=== PATIENT | female | born 1945 | race Caucasian/White ===

== ENCOUNTER 2022-09-03 17:51 | Inpatient (IN) | payer MEDICARE, SELFPAY ==
[2022-09-03] VITALS (8 sets, daily range): BP systolic 112–144; BP diastolic 54–84; PULSE 86–114; RESP 18–22; TEMP 36.7; O2SAT 91–94; BMI 25.0
--- NOTE | 2022-09-03 17:52 | XRR_ITS ---
PROCEDURE INFORMATION: Exam: XR Chest Exam date and time: 09/03/2022 6:26 PM Age: 77 years old Clinical indication: Shortness of breath; Prior surgery; Surgery date: 6+ months; Surgery type: Port; Patient HX: Breast CA; Additional info: SOB TECHNIQUE: Imaging protocol: Radiologic exam of the chest. Views: 1 view. COMPARISON: No relevant prior studies available. FINDINGS: Tubes, catheters and devices: Left-sided Port-A-Cath. Lungs: Left lower lobe atelectasis. Pleural spaces: Unremarkable. No pleural effusion. No pneumothorax. Heart/Mediastinum: Unremarkable. No cardiomegaly. Bones/joints: Unremarkable. XR/XR chest 1V portable [id number] IMPRESSION: Left lower lobe atelectasis.
--- NOTE | 2022-09-03 17:52 | ECG_ITS ---
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 Measurements Intervals [place] Rate: 112 P: 46 ME: 135 QRS: -40 QRSD: 94 T: 46 QT: 319 QTc: 436 Interpretive Statements SINUS TACHYCARDIA POSSIBLE LEFT ATRIAL ENLARGEMENT [-0.1mV P-WAVE IN V1/V2] LEFT AXIS DEVIATION [QRS AXIS < -30] POSSIBLE LEFT VENTRICULAR HYPERTROPHY [VOLTAGE CRITERIA PLUS LAE OR QRS WIDENING] POSSIBLE ANTERIOR MYOCARDIAL INFARCTION , PROBABLY OLD [30 ms Q WAVE IN V3/V4, OR R < 0.2 mV IN V4] No previous ECG available for comparison Electronically Signed On 09-04-2022 16:39:55 HOME THERAPY CLINICIAN by Raudel Smith M.D. [id number]
--- NOTE | 2022-09-03 18:45 | W.ED.SOB ---
HPI - SOB/Dyspnea General: Chief Complaint: Shortness of Breath/Dyspnea Stated Complaint: SOB,weak,fatigue Time Seen by Provider: 09/03/22 18:28 Source: patient and family Mode of arrival: ambulatory Limitations: no limitations History of Present Illness: HPI Narrative: See nursing assessment. Patient with complaints of increased shortness of breath over the last 3 days. She states she has had shortness of breath since she was diagnosed with COVID in June. She states over the past 24 hours she felt more fatigued, increased generalized weakness, off balance, fall last night but was unable to get up due to generalized weakness. Patient is also had intermittent diarrhea over the past couple days. Patient went to urgent care yesterday and was placed on prednisone and promethazine syrup for cough. Patient did not know she had a fever today. Patient had history of COVID in June and took back Paxlovid at that time. Patient reports chronic shortness of breath and cough since then. Patient reports cough that is nonproductive still. Patient states she was diagnosed and February of this year with ductal breast cancer and underwent chemotherapy up until June. She is not any radiation. She states she had a lumpectomy in July on August 20, 2022 in [place] where she gets her medical care. She states when she did have COVID she was not diagnosed with COVID-pneumonia. She states the diarrhea is common after chemotherapy. However, she has not had chemotherapy since June. Associated symptoms: Deny abdominal pain, chest pain, fever(s), hemoptysis, nausea, palpitations or vomiting Review of Systems Const: Denies: fever(s) or chills Eyes: Denies: change in vision ENMT: Denies: throat pain Card: Denies: chest pain or palpitations Resp: Reports: dyspnea and non-productive cough; Denies: wheezing or hemoptysis GI: Reports: diarrhea; Denies: abdominal pain, nausea, vomiting or hematochezia : Denies: flank pain Musc: Denies: neck pain Skin/Breast: Denies: rash or pruritus Neuro: Denies: headache(s) or numbness in extremities Psych: Denies: anxiety Calixto/Lymph: Denies: enlarged lymph nodes [facility] ED Supplemental [facility] Information: Left breast lumpectomy July 2022, Port-A-Cath left chest Physical Exam Const: COMMON NORMALS: no acute distress, patient oriented x3, no limitations and well nourished GENERAL APPEARANCE: cooperative HENMT: COMMON NORMALS: normocephalic and atraumatic HEAD & SCALP: normocephalic and atraumatic FACE & SINUS: normal facial exam Eye: COMMON NORMALS: EOMs intact bilaterally Neck/C-Spine: COMMON NORMALS: full ROM, no lymphadenopathy, supple and no meningeal signs GENERAL: Yes normal visual inspection Lymph: LYMPHATIC: no lymphadenopathy noted Chest: COMMONS NORMALS: normal inspection of the chest and normal palpation of entire chest wall CHEST: No Ecchymosis present and No rash OTHER: Port-A-Cath left chest. Left axilla and breast appears normal, except lump in the left lateral chest wall where she had lumpectomy. No erythema or increased warmth in that area. Resp: COMMON NORMALS: normal respiratory effort, No retractions and clear to auscultation bilaterally EFFORT & INSPECTION: No respiratory distress AUSCULTATION: clear to auscultation bilaterally OTHER: Lungs appear clear. Cardio: COMMON NORMALS: regular rhythm and Peripheral pulses 2+ throughout JUGULAR VENOUS DISTENTION: no JVD RHYTHM: regular rhythm PERIPHERAL PULSES: Peripheral pulses 2+ throughout GI: COMMON NORMALS: Normal to inspection, nondistended, normoactive bowel sounds present and non-tender : OTHER: Mild left flank pain. Back/Pelvis: OTHER: Mild left flank pain. Extremity: COMMON NORMALS: normal to inspection, full ROM and capillary refill normal Neuro: COMMON NORMALS: patient oriented x3, CN's II-XII intact bilaterally, no focal motor deficits and no sensory deficits noted MENINGEAL SIGNS: Yes no meningeal signs Psych: COMMON NORMALS: mental status grossly normal and Normal thought process present THOUGHT PROCESS: Normal thought process present Skin: COMMON NORMALS: no rashes or lesions noted and no wounds GENERAL SKIN EXAM: no rashes or lesions noted Course Vital Signs: Vital signs: Vital Signs Pulse Rate 86 09/03/22 20:23 Respiratory Rate 20 H 09/03/22 20:23 Blood Pressure 114/69 09/03/22 20:23 Pulse Oximetry 92 09/03/22 20:23 Oxygen Delivery Me thod 09/03/22 20:23 Oxygen Flow Rate 2 09/03/22 20:23 MDM - SOB/Dyspnea Medical Decision Making Possible pneumonia. Possible pyelonephritis. Possible influenza versus COVID Oxygen saturation 93% on room air. Temperature 103 orally Discussed with hospitalist Dr. Hare. Place patient in observation. Lab Data 09/03/22 18:46 09/03/22 18:46 Labs/Radiology: Radiology Impressions Chest X-Ray 09/03/22 17:52 IMPRESSION: Left lower lobe atelectasis. Laboratory Results WBC 7.9 10^3/uL (4.0-10.0) 09/03/22 18:46 RBC 4.01 10^6/uL (4.1-5.3) L 09/03/22 18:46 Hgb 11.2 g/dL (11.5-15.3) L 09/03/22 18:46 Hct 35.7 % (37.0-47.0) L 09/03/22 18:46 MCV 89.0 fl (81-99) 09/03/22 18:46 MCH 27.9 pg (28.0-34.0) L 09/03/22 18:46 MCHC 31.4 g/dL (30.0-36.0) 09/03/22 18:46 RDW 15.7 % (12.1-15.1) H 09/03/22 18:46 Plt Count 264 10^3/cmm (130-400) 09/03/22 18:46 MPV 9.5 fL (7.4-10.4) 09/03/22 18:46 Neut % (Auto) 75.4 % 09/03/22 18:46 Lymph % (Auto) 13.6 % 09/03/22 18:46 Gove % (Auto) 9.6 % 09/03/22 18:46 Eos % (Auto) 0.6 % 09/03/22 18:46 Baso % (Auto) 0.4 % 09/03/22 18:46 Neut # (Auto) 5.98 10^3/uL (1.8-7.7) 09/03/22 18:46 Lymph # (Auto) 1.1 10^3/uL (0.8-4.8) 09/03/22 18:46 Gove # (Auto) 0.8 10^3/uL (0.2-0.9) 09/03/22 18:46 Eos # (Auto) 0.1 10^3/uL (0.0-0.8) 09/03/22 18:46 Baso # (Auto) 0.0 10^3/uL (0.0-0.1) 09/03/22 18:46 Nucleated RBC % (auto) 0 % 09/03/22 18:46 Nucleated RBCs # 0.0 /100WBC 09/03/22 18:46 Sodium 137 mmol/L (136-145) 09/03/22 18:46 Potassium 3.6 mmol/L (3.5-5.1) 09/03/22 18:46 Chloride 101 mmol/L (98-107) 09/03/22 18:46 Carbon Dioxide 24 mmol/L (22-29) 09/03/22 18:46 Anion Gap 15.6 (5-19) 09/03/22 18:46 BUN 12 mg/dL (8-23) 09/03/22 18:46 Creatinine 0.9 mg/dL (0.5-0.9) 09/03/22 18:46 GFR Calculation Not Reportable 09/03/22 18:46 Glucose 115 mg/dL (65-115) 09/03/22 18:46 Calculated Osmolality 285 mOsm/kg (285-295) 09/03/22 18:46 Lactic Acid 2.1 mmol/L (0.5-2.2) 09/03/22 18:46 Lactic Acid (Sepsis) 0.7 mmol/L (0.5-2.2) 09/03/22 21:20 Calcium 8.8 mg/dL (8.5-10.5) 09/03/22 18:46 Total Bilirubin 0.3 mg/dL (0.15-1.2) 09/03/22 18:46 AST 20 U/L (0-32) 09/03/22 18:46 ALT 15 U/L (0-33) 09/03/22 18:46 Alkaline Phosphatase 75 U/L (35-105) 09/03/22 18:46 NT-Pro-B Natriuret Pep 136 pg/mL (0-450) 09/03/22 18:46 Total Protein 6.9 g/dL (6.6-8.7) 09/03/22 18:46 Albumin 3.5 g/dL (3.5-5.2) 09/03/22 18:46 Globulin 3.4 g/dL (1.3-4.6) 09/03/22 18:46 Urine Color Yellow (Yellow) 09/03/22 20: Urine Appearance Clear (CLEAR) 09/03/22 20: Urine pH 5 (5-7) 09/03/22 20:26 Ur Specific [place] 1.015 (1.005-1.030) 09/03/22 20:26 Urine Protein Trace (Negative) 09/03/22 20: Urine Glucose (UA) Norm (Normal) 09/03/22 20: Urine Ketones Negative (Negative) 09/03/22 20: Urine Blood 3+ (Negative) H 09/03/22 20: Urine Nitrate Negative (Negative) 09/03/22 20: Urine Bilirubin Neg (Negative) 09/03/22 20: Urine Urobilinogen Neg mg/dL (Negative) 09/03/22 20: Ur Leukocyte Esterase Negative (Negative) 09/03/22 20: Urine RBC 5-10 /hpf (0-2) H 09/03/22 20:26 Urine WBC 15-25 /hpf (0-5) H 09/03/22 20:26 Ur Squamous Epith Cells 0-4 /hpf (0-5) H 09/03/22 20:26 Amorphous Sediment Not Reportable 09/03/22 20:26 Urine Bacteria 1+ /hpf (NONE) H 09/03/22 20:26 Influenza Type A Ag negative (Negative) 09/03/22 19:23 Influenza Type B Ag negative (Negative) 09/03/22 19:23 SARS-CoV-2 Ag (Rapid) negative (Negative) 09/03/22 19:23 Imaging Data CXR: My impression: Minimal atelectasis in the left base; Port-A-Cath on the left Radiologist's impression: Ordering Provider/Ordering MD: Oksana Mosqueda MD Date of Service: 09/03/22 Procedure(s): XR chest 1V portable [id number] Accession Number(s): [id number] Report Number: [id number] PROCEDURE INFORMATION: Exam: XR Chest Exam date and time: 09/03/2022 6:26 PM Age: 77 years old Clinical indication: Shortness of breath; Prior surgery; Surgery date: 6+ months; Surgery type: Port; Patient HX: Breast CA; Additional info: SOB TECHNIQUE: Imaging protocol: Radiologic exam of the chest. Views: 1 view. COMPARISON: No relevant prior studies available. FINDINGS: Tubes, catheters and devices: Left-sided Port-A-Cath. Lungs: Left lower lobe atelectasis. Pleural spaces: Unremarkable. No pleural effusion. No pneumothorax. Heart/Mediastinum: Unremarkable. No cardiomegaly. Bones/joints: Unremarkable. XR/XR chest 1V portable [id number] IMPRESSION: Left lower lobe atelectasis. ? Dictated By: Luis Hilton MD Signed By: Luis Hilton MD Signed Date/Time: 09/03/22 184 DD/ 182 EKG Data EKG 1: I personally reviewed and interpreted this EKG as follows: EKG Interpretation Date: 09/03/22 EKG interpretation time: 18:30 Prior EKG tracings: not available for review Interpretation: Impression sinus tachycardia heart rate 112. Left axis. Normal P waves, normal T waves. Normal QRS. Normal [place] interval, normal QT interval. Normal ST segment. Discharge Plan Discharge Patient Disposition: Placed in Observation Clinical Impression: Community acquired pneumonia of left lower lobe of lung, Shortness of breath Coding Level of Care Code ED Power Press Supervisor for Chjase Fwanjana History Comprehensive Exam Comprehensive Medical Decision Making Moderate Complexity
[2022-09-03] MEDS: acetaminophen 325 mg Tablet 650 MG PO (19:19)
[2022-09-03 19:30] LABS: Basophils % 0.4 %; Eosinophils # 0.1 10^3/uL (0.0-0.8); Eosinophils % 0.6 %; Hematocrit 35.7 % (37.0-47.0); Hemoglobin 11.2 g/dL (11.5-15.3); Lymphocytes # 1.1 10^3/uL (0.8-4.8); Lymphocytes % 13.6 %; Mean Corpuscular HGB Conc 31.4 g/dL (30.0-36.0); Mean Corpuscular Hemoglobin 27.9 pg (28.0-34.0); Mean Platelet Volume 9.5 fL (7.4-10.4); Monocytes # 0.8 10^3/uL (0.2-0.9); Monocytes % 9.6 %; Neutrophils # 5.98 10^3/uL (1.8-7.7); Neutrophils % 75.4 %; Nucleated Red Blood Cells % 0 %; Platelet Count 264 10^3/cmm (130-400); Red Blood Count 4.01 10^6/uL (4.1-5.3); Red Cell Distribution Width 15.7 % (12.1-15.1); White Blood Count 7.9 10^3/uL (4.0-10.0)
[2022-09-03 19:44] LABS: Lactic Sepsis W/Reflex 2.1 mmol/L (0.5-2.2)
[2022-09-03 19:54] LABS: Alanine Aminotransferase 15 U/L (0-33); Albumin Level 3.5 g/dL (3.5-5.2); Alkaline Phosphatase 75 U/L (35-105); Anion Gap 15.6 (5-19); Aspartate Amino Transferase 20 U/L (0-32); Blood Urea Nitrogen 12 mg/dL (8-23); Calcium 8.8 mg/dL (8.5-10.5); Carbon Dioxide 24 mmol/L (22-29); Chloride 101 mmol/L (98-107); Globulin 3.4 g/dL (1.3-4.6); Glucose 115 mg/dL (65-115); NT Pro B Type Natriuretic Pept 136 pg/mL (0-450); Osmolality Calculated 285 mOsm/kg (285-295); Potassium 3.6 mmol/L (3.5-5.1); Sodium 137 mmol/L (136-145); Total Bilirubin 0.3 mg/dL (0.15-1.2); Total Protein 6.9 g/dL (6.6-8.7)
[2022-09-03 19:55] LABS: Influenza A by IFA negative (Negative); Influenza B by IFA negative (Negative)
[2022-09-03 19:56] LABS: SARS Covid-2 Antigen negative (Negative)
[2022-09-03] MEDS: cefTRIAXone 1,000 MG in sodium chloride 0.9% (plus) 50 ML 100 MG IV (20:46)
[2022-09-03 20:48] LABS: Protein Urine Trace (Negative); Specific Gravity, Urine 1.015 (1.005-1.030); Urine Appearance Clear (CLEAR); Urine Color Yellow (Yellow); pH Urine 5 (5-7)
[2022-09-03 20:49] LABS: Bilirubin Urine Neg (Negative); Blood Urine 3+ (Negative); Glucose Urine UA Norm (Normal); Ketones Urine Negative (Negative); Leukocyte Esterase Urine Negative (Negative); Nitrate Urine Negative (Negative); Urobilinogen Urine Neg (Negative)
[2022-09-03 20:55] LABS: Add Urine Culture? Yes; Bacteria Urine 1+ /hpf; Squamous Epithelial Cell Urine 0-4 /hpf (0-5); WBC Urine 15-25 /hpf (0-5)
[2022-09-03 21:10] LABS: Reflex Lactate Order REFLEX LACTIC ORDERD
[2022-09-03] MEDS: azithromycin 500 MG in sodium chloride 0.9% 250 ML 250 MG IV (21:28)
[2022-09-03 21:41] LABS: Lactic Acid level (Lactate) 0.7 mmol/L (0.5-2.2)
--- NOTE | 2022-09-03 22:06 | PM.HP ---
Providers/Chief Complaint Chief Complaint: SOB,weak,fatigue History of Present Illness Jennifer Trevino is a 77 year old female with past medical history of hyperlipidemia, depression, anxiety, breast cancer status post chemotherapy and lumpectomy presented to the hospital with complaints of increased shortness of breath over the last 3 days. She says she was diagnosed with COVID in June and was prescribed Paxlovid and ever since then he has had shortness of breath on and off. However in the last day or 2 she has felt worse and more fatigued with generalized weakness. She says she is unable to get up because of the weakness. She did have some diarrhea as well however it is now better. She went to urgent care yesterday and was placed on prednisone and promethazine. She did not feel feverish at home did not check her temperature however when she got to the hospital she had a temp of 103 today. Patient's last round of chemo was 2 months ago. She states that she had chemo up until June. She then had a lumpectomy done on August 20 in [place] where she lives. She is visiting [place] because her sister is currently admitted in the hospital. Denies abdominal pain, nausea, vomiting, palpitations, diarrhea at this time. Denies any sputum production. On arrival to ER blood pressure 114/69 heart rate 20, pulse 86, saturating 92% on 2 L nasal cannula. Chest x-ray shows lower lobe atelectasis.WBC 7.9, hemoglobin 11.2, all other labs unremarkable, UA shows 15-25 WBC, negative leuk esterase, negative nitrites, 3+ blood present.Patient was saturating low 90s on room air. Does not use oxygen at home. Placed on 2 L in the ER. Lactic acid 2.1. Patient is a full code at this time. She states in case she cannot make her own medical decisions her son should be contacted: Jacoby Chacon6?[phone]. Patient does not know her home medications. She states that someone from home will bring them in the morning. She would like to skip all her doses today. She takes 3 tablets in total daily. Medications/Allergies Allergies Allergy/AdvReac Type Severity Reaction Status Date / Time sulfamethoxazole Allergy Unknown Unknown Verified 09/03/22 20:30 [From Bactrim] trimethoprim [From Bactrim] Allergy Unknown Unknown Verified 09/03/22 20:30 Vitals/I&O/Wt Last Vital Signs Pulse 86 09/03/22 20:23 Resp 20 H 09/03/22 20:23 BP 114/69 09/03/22 20:23 Pulse Ox 92 09/03/22 20:23 O2 Del Method 09/03/22 20:23 O2 Flow Rate 2 09/03/22 20:23 09/03/22 09/03/22 09/03/22 06:59 14:59 22:59 Intake Total 50 / 50 Balance 50 / 50 Weight last 48 hrs Weight 72.575 kg Physical Exam Narrative: General: Alert oriented x3, patient seen laying in bed comfortable on 2 L nasal cannula at this time. HEENT: Normocephalic, atraumatic, EOMI, breathing normally Cardio: Regular rate rhythm, normal S1-S2, has Mediport on left side of chest. Site appears clean no erythema. Respiratory: Clear to auscultation bilaterally good bilateral air entry, no wheezes no rhonchi appreciated GI: Abdomen soft, nontender, nondistended, bowel sounds + Behavior: Appropriate and cooperative Extremities:no edema, no cyanosis Data 09/03/22 18:46 09/03/22 18:46 Micro: Microbiology 09/03/22 19:42 Blood Culture - Preliminary Blood SPECIMEN COLLECTED 09/03/22 18:46 Blood Culture - Preliminary Blood SPECIMEN COLLECTED A&P Assessment and plan (1) Community acquired pneumonia of left lower lobe of lung: (2) Shortness of breath: (3) Diarrhea: (4) Weakness: (5) Fever: (6) Immunocompromised: (7) Breast cancer: (8) Pneumonia: (9) Cough: (10) Oxygen dependent: Plan #Generalized weakness/dehydration #Fever 103 on arrival #Recent diarrhea #Shortness of breath x48 hours #Left lower lobe atelectasis versus pneumonia #Depression, anxiety #Breast cancer status post lumpectomy, on chemotherapy, last cycle 2 months ago. #Immunocompromise status ?Lives [place] and currently visiting [place] ? Continue ceftriaxone, azithromycin ? Continue on IV fluids ? Check MRSA nares, strep Legionella antigens, sputum gram stain culture ? PT OT ? Check orthostatic vital signs ? Placed on telemetry ? Check blood cultures, urine culture ? Patient will probably need home oxygen evaluation at discharge ? Repeat lactic acid in a.m. ? Check procalcitonin -Check respiratory viral panel -Patient no longer having diarrhea however stools are loose? C. difficile ordered and bacterial panel stool culture ordered in ER. - PT/OT Full code DVT prophylaxis: Lovenox Attestations Medical Necessity Statement*: observation for fever, possible pneumonia, weakness Coding Level of Care Code Acute Adzing And Boring Machine Feeder for Chg Fwd Diagnoses Community acquired pneumonia of left lower lobe of lung J18.9 Shortness of breath R06.02 Diarrhea R19.7 Weakness R53.1 Fever R50.9 Immunocompromised D84.9 Breast cancer C50.919 Pneumonia J18.9 Cough R05.9 Oxygen dependent Z99.81
[2022-09-03 22:46] LABS: Procalcitonin 0.12 ng/mL (0-0.5); Thyroid Stimulating Hormone 0.75 uIU/mL (0.27-4.20)
[2022-09-04] VITALS (8 sets, daily range): BP systolic 106–161; BP diastolic 54–87; PULSE 89–103; RESP 15–18; TEMP 36.9–38.4; O2SAT 92–99
[2022-09-04] MEDS: enoxaparin 40 mg/0.4 mL Syringe SUBCUT (02:54)
[2022-09-04 04:02] LABS: Basophils % 0.4 %; Eosinophils # 0.1 10^3/uL (0.0-0.8); Eosinophils % 0.9 %; Hematocrit 35.7 % (37.0-47.0); Hemoglobin 11.1 g/dL (11.5-15.3); Lymphocytes # 1.3 10^3/uL (0.8-4.8); Lymphocytes % 22.7 %; Mean Corpuscular HGB Conc 31.1 g/dL (30.0-36.0); Mean Corpuscular Hemoglobin 28.2 pg (28.0-34.0); Mean Corpuscular Volume 90.6 fl (81-99); Mean Platelet Volume 9.4 fL (7.4-10.4); Monocytes # 0.8 10^3/uL (0.2-0.9); Neutrophils # 3.46 10^3/uL (1.8-7.7); Neutrophils % 61.5 %; Nucleated Red Blood Cells % 0 %; Platelet Count 232 10^3/cmm (130-400); Red Blood Count 3.94 10^6/uL (4.1-5.3); Red Cell Distribution Width 15.7 % (12.1-15.1); White Blood Count 5.6 10^3/uL (4.0-10.0)
[2022-09-04 04:23] LABS: Alanine Aminotransferase 14 U/L (0-33); Albumin Level 3.7 g/dL (3.5-5.2); Alkaline Phosphatase 68 U/L (35-105); Anion Gap 15.3 (5-19); Aspartate Amino Transferase 20 U/L (0-32); Blood Urea Nitrogen 13 mg/dL (8-23); Calcium 8.6 mg/dL (8.5-10.5); Carbon Dioxide 25 mmol/L (22-29); Chloride 105 mmol/L (98-107); Glucose 105 mg/dL (65-115); Magnesium 1.9 mg/dL (1.7-2.3); Osmolality Calculated 294 mOsm/kg (285-295); Potassium 3.3 mmol/L (3.5-5.1); Sodium 142 mmol/L (136-145); Total Bilirubin 0.2 mg/dL (0.15-1.2); Total Protein 6.7 g/dL (6.6-8.7)
[2022-09-04 04:59] LABS: Adenovirus Not Detected (NOT DETECT); Chlamydia Pneumoniae Not Detected (NOT DETECT); Coronavirus 229E,HKU1,NL63,OC4 Not Detected (NOT DETECT); Human Metapneumovirus Not Detected (NOT DETECT); Human Rhinovirus/Enterovirus Not Detected (NOT DETECT); Influenza A Detected (NOT DETECT); Influenza A H1 Not Detected (NOT DETECT); Influenza A H1-2009 Detected (NOT DETECT); Influenza A H3 Not Detected (NOT DETECT); Influenza B Not Detected (NOT DETECT); Mycoplasma Pneumoniae Not Detected (NOT DETECT); Parainfluenza Virus Type 1 Not Detected (NOT DETECT); Parainfluenza Virus Type 2 Not Detected (NOT DETECT); Parainfluenza Virus Type 3 Not Detected (NOT DETECT); Parainfluenza Virus Type 4 Not Detected (NOT DETECT); Respiratory Syncytial Virus A Not Detected (NOT DETECT); Respiratory Syncytial Virus B Not Detected (NOT DETECT); SARS-COV-2 Not Detected (NOT DETECT)
[2022-09-04 05:39] LABS: Influenza A Detected (NOT DETECT); Influenza A H1 Not Detected (NOT DETECT); Influenza A H1-2009 Detected (NOT DETECT); Influenza A H3 Not Detected (NOT DETECT); Influenza B Not Detected (NOT DETECT); Results from Genmark
--- NOTE | 2022-09-04 06:00 | USCV_ITS ---
Jennifer Trevino Age: 77 Gender: F : 1945 Exam Date: 09/04/2022 14:17 Ordering Phys: Trini Hare MD Technologist: MARVEL Exam Location: [facility] [place] Indication: CHF BP: 106 / 64 HR: 91 Rhythm: Sinus Technical Quality: Adequate MEASUREMENTS (Male / Female) Normal Values 2D ECHO LV Diastolic Diameter PLAX 4.5 cm 4.2 - 5.9 / 3.9 - 5.3 cm LV Systolic Diameter PLAX 2.7 cm IVS Diastolic Thickness 0.7 cm 0.6 - 1.0 / 0.6 - 0.9 cm IVS Systolic Thickness 1.0 cm LVPW Diastolic Thickness 0.7 cm 0.6 - 1.0 / 0.6 - 0.9 cm LVPW Systolic Thickness 0.9 cm LVOT Diameter 2.1 cm LV Ejection Fraction 2D Teich 69.6 % LV Ejection Fraction MOD 2C 73.7 % LV Ejection Fraction 2C AL 73.8 % LA Diameter 2.5 cm IVC Diameter 2.9 cm M-MODE Aortic Annulus Diameter 2.7 cm LA Ao Ratio MM 1.1 MV E Point Septal Separation 0.4 cm DOPPLER AV Peak Velocity 142.0 cm/s LVOT Peak Velocity 96.0 cm/s AV Area Cont Eq vti 2.0 cm squared AV Area Cont Eq pk 2.3 cm squared MV Area PHT 2.9 cm squared Mitral E to A Ratio 0.7 MV E' Velocity 80.0 cm/s TR Peak Velocity 150.0 cm/s TR Peak Gradient 9.0 mmHg TV Peak E Velocity 43.0 cm/s PV Peak Velocity 74.0 cm/s FINDINGS Left Ventricle Normal left ventricular size, systolic function and wall thickness, with no regional wall motion abnormalities. Left ventricular ejection fraction is estimated at 65 %. Grade I/IV diastolic dysfunction (abnormal relaxation filling pattern), normal to mildly elevated filling pressures. Right Ventricle Normal right ventricular size and systolic function. Right Atrium The right atrium is normal in size. Left Atrium The left atrium is normal in size. Mitral Valve Structurally normal mitral valve without significant stenosis or prolapse. There is no mitral regurgitation. Aortic Valve Structurally normal aortic valve without significant sclerosis or stenosis. There is no aortic regurgitation. Tricuspid Valve Structurally normal tricuspid valve without significant stenosis or regurgitation. Pulmonary artery systolic pressure is normal. Pulmonic Valve Pulmonic valve not well visualized. Pericardium Normal pericardium without effusion. Aorta Normal ascending aorta dimension. IVC The inferior vena cava appears normal. CONCLUSIONS Normal left ventricular size, systolic function and wall thickness, with no regional wall motion abnormalities. Left ventricular ejection fraction is estimated at 65 %. Grade I/IV diastolic dysfunction (abnormal relaxation filling pattern), normal to mildly elevated filling pressures. There are no prior echocardiogram studies to compare. Dr. Raudel Smith MD (Electronically Signed) Final Date: 04 September 2022 16:32 S
--- NOTE | 2022-09-04 08:13 | CTR_ITS ---
PROCEDURE INFORMATION: Exam: CT Chest With Contrast; Diagnostic Exam date and time: 09/04/2022 9:21 AM Age: 77 years old Clinical indication: Other: Pna; Prior surgery; Surgery type: Port; Patient HX: Breast CA; Additional info: Evaluate for pna TECHNIQUE: Imaging protocol: Diagnostic computed tomography of the chest with contrast. Radiation optimization: All CT scans at this facility use at least one of these dose optimization techniques: automated exposure control; mA and/or kV adjustment per patient size (includes targeted exams where dose is matched to clinical indication); or iterative reconstruction. Contrast material: OMNI 350; Contrast volume: 80 ml; Contrast route: INTRAVENOUS (IV); COMPARISON: CR (CHEST, ) 09/03/2022 6:26 PM RADIATION DOSE METRICS: Total DLP (mGy-cm): 660.11 FINDINGS: Tubes, catheters and devices: [id number] positioned at the medial upper left chest with lead tip positioning superior vena cava. Lungs: Areas of pleuroparenchymal scarring throughout both lungs. Pleural spaces: Unremarkable. No pneumothorax. No pleural effusion. Heart: Unremarkable. No cardiomegaly. No pericardial effusion. Lymph nodes: Numerous small nonspecific mediastinal lymph nodes. Distal right paratracheal lymph node greatest diameter 1.7 cm. Subcarinal lymph node measures approximately 1.8-1.9 Cm. Granulomatous calcification within the mediastinum and left cruzito. Vasculature: Atherosclerotic calcification thoracic aorta and distribution of coronary arteries. Liver: Small hypodensity in the lower right hepatic lobe measures 0.5 cm. This finding is too small for definitive characterization. Additional upper right and left hepatic lobe hypodensities consistent with cyst. Two additional areas in the medial segment left hepatic lobe and superior right hepatic lobe anteriorly are too small for definitive characterization. Spleen: Splenomegaly longitudinally measures 13.5 cm. Kidneys and ureters: Numerous small cystic structures within both kidneys greatest involvement on the left. Bones/joints: Degenerative changes of the spine. Soft tissues: Mild nonspecific soft tissue stranding at the left axilla. Postoperative changes with soft tissue expansion or mass posterior left breast measuring 5.[address]/CT chest w con* [id number] IMPRESSION: 1. Areas of pleuroparenchymal scarring throughout both lungs. 2. Postsurgical change and or combination left breast mass with adjacent surgical clips. 3. Minor areas of linear stranding left axilla. 4. Small nonspecific mediastinal lymph nodes. Borderline accentuated size and could be reactive or neoplastic. Correlate to further surveillance imaging or PET imaging if available. 5. Numerous tiny cyst throughout both kidneys with greatest involvement on the left. 6. Numerous hypodense lesions within the liver a few of which are consistent with hepatic cyst. A few are too small for definitive characterization. 7. Splenomegaly. 8. Areas of pleuroparenchymal scarring throughout both lungs. There is no focal consolidation. COMMENTS: Consistent with the [employer]'s Incidental Findings Committee white paper (J Am Anjali Radiol 2018): Any incidental renal lesion less than 1 cm or classified as too small to characterize, or any incidental cystic renal lesion characterized as simple-appearing, is likely benign. No follow-up imaging is recommended for these lesions per consensus recommendations based on imaging criteria.
[2022-09-04] MEDS: iohexol 350 mg/mL 500 mL Btl (per mL) IV (09:38)
[2022-09-04] MEDS: potassium chloride ER 20 mEq Tablet 40 MEQ PO (10:23)
[2022-09-04] MEDS: acetaminophen 325 mg Tablet 650 MG PO (10:31)
--- NOTE | 2022-09-04 10:34 | P.PN_ITS ---
Subjective Subjective: Patient endorses shortness of breath and cough. Reports generalized malaise and fatigue. Reports fevers and poor appetite. Denies focal weakness, emesis, or abdominal pain. Medications: Reviewed: Yes Vitals/I&O/Wt Last Vital Signs Temp 100.7 F H 09/04/22 07:38 Pulse 102 H 09/04/22 07:38 Resp 15 09/04/22 07:38 BP 131/77 09/04/22 07:38 Pulse Ox 96 09/04/22 07:38 O2 Del Method 09/04/22 07:38 O2 Flow Rate 1 09/04/22 08:00 09/03/22 09/04/22 09/04/22 22:59 06:59 14:59 Intake Total 50 / 50 250 / 300 Balance 50 / 50 250 / 300 Weight last 48 hrs Weight 72.575 kg Physical Exam Narrative: General: Patient is awake. Frail appearing. Appears ill. Head: Normocephalic. Atraumatic. EOM intact. Neck: No JVD. Cardiovascular: No gallops. No murmurs. Regular rhythm. Lungs: Breath sounds are diminished in bilateral bases. Skin: No jaundice. No rashes. Abdomen: Normal bowel sounds, abdomen soft and nontender. Genito Urinary: Genital exam not performed since complaints not related. Rectal: Rectal exam not performed since no symptoms indicated blood loss. Extremities: No cyanosis or clubbing. Musculoskeletal: Appropriate muscle development for age. Neurological: Moves all 4 extremities. No myoclonus. Data 09/04/22 03:22 09/04/22 03:22 Micro: Microbiology 09/03/22 19:42 Blood Culture - Preliminary Blood SPECIMEN COLLECTED 09/03/22 18:46 Blood Culture - Preliminary Blood SPECIMEN COLLECTED A&P Assessment and plan (1) Pneumonia: Community acquired pneumonia Continues to fever this morning Follow up MRSA, legionella ag, and strep ag Continue ceftriaxone Continue azithromycin Chest CT ordered Continue supplemental oxygen support Continue supportive care Follow up respiratory viral panel (2) Breast cancer: Immunocompromised Reverse precautions (3) Diarrhea: Seems to be improving Continue to monitor (4) Debility: Treat underlying infection Supportive care Physical therapy ordered DVT Plan DVT ppx: Lovenox Code status: Full Code Attestations Medical Necessity Statement*: Patient requires ongoing hospitalization for IV antibiotics, oxygen support, imaging, and supportive care with expected hospitalization to cross two midnights. 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
[2022-09-05] VITALS (7 sets, daily range): BP systolic 97–118; BP diastolic 60–71; PULSE 79–100; RESP 16–18; TEMP 36.3–37.2; O2SAT 90–97
[2022-09-05] MEDS: enoxaparin 40 mg/0.4 mL Syringe SUBCUT (01:05)
[2022-09-05] MEDS: benzonatate 100 mg Capsule PO (01:05)
[2022-09-05 04:01] LABS: Basophils % 0.3 %; Eosinophils # 0.1 10^3/uL (0.0-0.8); Eosinophils % 0.9 %; Hematocrit 38.5 % (37.0-47.0); Lymphocytes # 1.8 10^3/uL (0.8-4.8); Lymphocytes % 30.6 %; Mean Corpuscular HGB Conc 31.2 g/dL (30.0-36.0); Mean Corpuscular Hemoglobin 28.3 pg (28.0-34.0); Mean Corpuscular Volume 90.8 fl (81-99); Mean Platelet Volume 9.5 fL (7.4-10.4); Monocytes # 0.6 10^3/uL (0.2-0.9); Monocytes % 10.1 %; Neutrophils # 3.33 10^3/uL (1.8-7.7); Neutrophils % 57.8 %; Nucleated Red Blood Cells % 0 %; Platelet Count 225 10^3/cmm (130-400); Red Blood Count 4.24 10^6/uL (4.1-5.3); Red Cell Distribution Width 15.9 % (12.1-15.1); White Blood Count 5.8 10^3/uL (4.0-10.0)
[2022-09-05 04:26] LABS: Albumin Level 3.4 g/dL (3.5-5.2); Anion Gap 13.5 (5-19); Blood Urea Nitrogen 10 mg/dL (8-23); Calcium 8.7 mg/dL (8.5-10.5); Carbon Dioxide 24 mmol/L (22-29); Chloride 97 mmol/L (98-107); Glucose 105 mg/dL (65-115); Magnesium 1.9 mg/dL (1.7-2.3); Phosphorus 2.8 mg/dL (2.5-4.5); Potassium 3.5 mmol/L (3.5-5.1); Sodium 131 mmol/L (136-145)
--- NOTE | 2022-09-05 09:12 | P.PN_ITS ---
Subjective Subjective: Patient reports her diarrhea has resolved. Endorses fevers, chills, generalized malaise, and fatigue. Denies nausea or emesis. Tmax of 101.2. Medications: Reviewed: Yes Vitals/I&O/Wt Last Vital Signs Temp 98.6 F 09/05/22 08:00 Pulse 85 09/05/22 08:00 Resp 18 09/05/22 08:00 BP 118/71 09/05/22 08:00 Pulse Ox 97 09/05/22 08:00 O2 Del Method 09/05/22 08:00 O2 Flow Rate 2 09/04/22 20:00 09/04/22 09/05/22 09/05/22 22:59 06:59 14:59 Intake Total 480 / 600 Balance 480 / 600 Weight last 48 hrs Weight 72.575 kg Physical Exam Narrative: General: Patient is awake. Frail appearing. Appears ill. Head: Normocephalic. Atraumatic. EOMI. Neck: No JVD. Cardiovascular: No gallops. No murmurs. Regular rhythm. Lungs: Breath sounds are diminished in bilateral bases. No wheezing. No crackles. Skin: No jaundice. No rashes. Abdomen: Normal bowel sounds, abdomen soft and nontender. Genito Urinary: Genital exam not performed since complaints not related. Rectal: Rectal exam not performed since no symptoms indicated blood loss. Extremities: No cyanosis or clubbing. Musculoskeletal: Appropriate muscle development for age. Neurological: Moves all 4 extremities. No myoclonus. Data 09/05/22 03:45 09/05/22 03:45 Micro: Microbiology 09/03/22 19:42 Blood Culture - Preliminary Blood NEGATIVE TO DATE 09/03/22 18:46 Blood Culture - Preliminary Blood NEGATIVE TO DATE A&P Assessment and plan (1) Pneumonia: Community acquired pneumonia BCx pending Imaging reviewed Continue ceftriaxone Continue azithromycin Continue supplemental oxygen support Continue supportive care (2) Influenza A: Start Tamiflu Droplet precautions Tylenol as needed Tessalon as needed Supportive care (3) Breast cancer: Immunocompromised (4) Diarrhea: Resolved Monitor for recurrence (5) Debility: Treat underlying infection Supportive care Physical therapy consulted Plan DVT ppx: Lovenox Code status: Full Code Attestations Medical Necessity Statement*: Patient requires ongoing hospitalization for IV antibiotics, oxygen support, and supportive care with expected hospitalization to cross two midnights. 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
[2022-09-05] MEDS: cefTRIAXone 1,000 MG in sodium chloride 0.9% (plus) 50 ML 100 MG IV (10:05)
[2022-09-05] MEDS: oseltamivir phosphate 75 mg Capsule PO ×2 (10:05→18:12)
[2022-09-05] MEDS: azithromycin 500 MG in sodium chloride 0.9% 250 ML 250 MG IV (12:12)
[2022-09-05] MEDS: ondansetron 2 mg/ML SDV 2 mL 4 MG IVP (13:17)
[2022-09-06] VITALS (7 sets, daily range): BP systolic 94–134; BP diastolic 54–74; PULSE 70–90; RESP 16–18; TEMP 36.9–37.4; O2SAT 90–94
[2022-09-06] MEDS: enoxaparin 40 mg/0.4 mL Syringe SUBCUT (02:28)
[2022-09-06 04:01] LABS: Basophils % 0.2 %; Eosinophils # 0.2 10^3/uL (0.0-0.8); Hemoglobin 11.1 g/dL (11.5-15.3); Lymphocytes # 2.1 10^3/uL (0.8-4.8); Lymphocytes % 41.4 %; Mean Corpuscular HGB Conc 30.8 g/dL (30.0-36.0); Mean Corpuscular Hemoglobin 27.5 pg (28.0-34.0); Mean Corpuscular Volume 89.3 fl (81-99); Mean Platelet Volume 9.8 fL (7.4-10.4); Monocytes # 0.4 10^3/uL (0.2-0.9); Monocytes % 7.8 %; Neutrophils # 2.35 10^3/uL (1.8-7.7); Neutrophils % 47.2 %; Nucleated Red Blood Cells % 0 %; Platelet Count 221 10^3/cmm (130-400); Red Blood Count 4.03 10^6/uL (4.1-5.3); Red Cell Distribution Width 15.9 % (12.1-15.1)
[2022-09-06 04:24] LABS: Albumin Level 3.2 g/dL (3.5-5.2); Anion Gap 13.5 (5-19); Blood Urea Nitrogen 10 mg/dL (8-23); Calcium 8.6 mg/dL (8.5-10.5); Carbon Dioxide 25 mmol/L (22-29); Chloride 101 mmol/L (98-107); Glucose 116 mg/dL (65-115); Magnesium 1.9 mg/dL (1.7-2.3); Phosphorus 2.9 mg/dL (2.5-4.5); Potassium 3.5 mmol/L (3.5-5.1); Sodium 136 mmol/L (136-145)
[2022-09-06] MEDS: azithromycin 500 MG in sodium chloride 0.9% 250 ML 250 MG IV (06:24)
[2022-09-06] MEDS: cefTRIAXone 1,000 MG in sodium chloride 0.9% (plus) 50 ML 100 MG IV (08:33)
[2022-09-06] MEDS: oseltamivir phosphate 75 mg Capsule PO ×2 (08:33→17:09)
--- NOTE | 2022-09-06 15:39 | P.PN_ITS ---
Subjective Subjective: Patient was seen this morning, she continues to complain of weakness, fatigue, poor appetite, afebrile overnight, not requiring any oxygen, nonproductive cough Vitals/I&O/Wt Last Vital Signs Temp 98.4 F 09/06/22 12:00 Pulse 89 09/06/22 12:00 Resp 18 09/06/22 12:00 BP 111/64 09/06/22 12:00 Pulse Ox 91 09/06/22 12:00 O2 Del Method 09/06/22 12:00 O2 Flow Rate 2 09/05/22 09:17 09/06/22 09/06/22 09/06/22 06:59 14:59 22:59 Intake Total 780 / 780 Balance 780 / 780 Physical Exam Const: COMMON NORMALS: no acute distress and patient oriented x3 Resp: COMMON NORMALS: normal respiratory effort, No retractions, No use of accessory muscles and clear to auscultation bilaterally AUSCULTATION: clear to auscultation bilaterally Cardio: COMMON NORMALS: regular rate, regular rhythm, S1 normal heart sound p resent and S2 normal heart sound present RATE: regular rate RHYTHM: regular rhythm HEART SOUNDS: S1 normal heart sound present and S2 normal heart sound present GI: COMMON NORMALS: Normal to inspection, nondistended, normoactive bowel sounds present and non-tender Extremity: COMMON NORMALS: no pedal edema Neuro: COMMON NORMALS: patient oriented x3 Psych: COMMON NORMALS: mental status grossly normal Data 09/06/22 03:27 09/06/22 03:21 Micro: Microbiology 09/03/22 20:26 Urine Culture - Preliminary Urine,Clean Catch A&P Assessment and plan (1) Pneumonia: Community acquired pneumonia BCx so far negative Continue ceftriaxone Continue azithromycin Continue supplemental oxygen support Continue supportive care Plan on urging in the next 24 hours (2) Influenza A: Continue Tamiflu Droplet precautions Tylenol as needed Tessalon as needed Supportive care (3) Breast cancer: Immunocompromised (4) Diarrhea: Resolved Monitor for recurrence (5) Debility: Treat underlying infection Supportive care Physical therapy consulted Plan DVT ppx: Lovenox Code status: Full Code Plan for to continue antibiotic therapy, continue Tamiflu, monitor respiratory status closely, potentially discharge in the next 24 hours Attestations Medical Necessity Statement*: Patient requires hospitalization for influenza A, pneumonia Coding Level of Care Code 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
[2022-09-07] VITALS: BP 123/74; PULSE 81; RESP 16; TEMP 37.2; O2SAT 90
[2022-09-07] MEDS: enoxaparin 40 mg/0.4 mL Syringe SUBCUT (02:59)
[2022-09-07 04:00] VITALS: BP 119/70; PULSE 70; RESP 16; TEMP 36.8; O2SAT 93
[2022-09-07] MEDS: azithromycin 500 MG in sodium chloride 0.9% 250 ML 250 MG IV ×3 (06:22→06:47)
[2022-09-07 07:38] VITALS: BP 95/55; PULSE 74; RESP 18; TEMP 36.7; O2SAT 91
--- NOTE | 2022-09-07 07:40 | PC.NURSE ---
nurse was notified about soft BP
[2022-09-07] MEDS: cefTRIAXone 1,000 MG in sodium chloride 0.9% (plus) 50 ML 100 MG IV (07:50)
[2022-09-07 09:40] VITALS: PULSE 74; O2SAT 93
--- NOTE | 2022-09-07 10:21 | PC.SOCIAL ---
IMM Update pg 2 of IMM updated and reviewed w/ patient. Copy provided and copy dated, initialed and placed in chart.
[2022-09-07] MEDS: oseltamivir phosphate 75 mg Capsule PO (10:28)
[2022-09-07 10:40] VITALS: BP 97/57; PULSE 71; RESP 16; O2SAT 93
[2022-09-07 10:50] VITALS: BP 95/55; PULSE 74; RESP 18; TEMP 36.7; O2SAT 93
--- NOTE | 2022-09-07 12:07 | P.DS_ITS ---
Discharge Providers Date of Admission: 09/04/22 10:41 Date of Discharge: September 07, 2022 Attending Provider at Admission: Trini Hare MD Attending Provider at Discharge: Krzysztof Valdes MD Diagnoses at Discharge Discharge Diagnosis (1) Pneumonia: Status: Acute (2) Influenza A: Status: Acute (3) Breast cancer: Status: Acute (4) Diarrhea: Status: Acute (5) Debility: Status: Acute Reason for Visit Reason for Visit: SOB,weak,fatigue Hospital Course Hospital Course Jennifer Trevino is a 77 year old female with past medical history of hyperlipi demia, depression, anxiety, breast cancer status post chemotherapy and lumpectomy presented to the hospital with complaints of increased shortness of breath over the last 3 days Patient was admitted to [facility] for shortness of breath secondary to community-acquired pneumonia, influenza A, managed with broad-spectrum antibiotic therapy, Tamiflu, clinically monitored. Patient overall clinically improved, cultures negative to date, remains afebrile, on room air discharged on Tamiflu, for 3 days, Levaquin for 5 days, instructions to facemask, hand wash, socially distance, follow-up with primary care provider in 1 week. Follow-up with her oncology team in 1 week. Physical Exam Const: COMMON NORMALS: no acute distress and patient oriented x3 HENMT: COMMON NORMALS: normocephalic HEAD & SCALP: normocephalic Resp: COMMON NORMALS: normal respiratory effort, No retractions, No use of accessory muscles and clear to auscultation bilaterally AUSCULTATION: clear to auscultation bilaterally Cardio: COMMON NORMALS: regular rate, regular rhythm, S1 normal heart sound present and S2 normal heart sound present RATE: regular rate RHYTHM: regular rhythm HEART SOUNDS: S1 normal heart sound present and S2 normal heart sound present GI: COMMON NORMALS: Normal to inspection, nondistended, normoactive bowel sounds present and non-tender Extremity: COMMON NORMALS: no pedal edema Neuro: COMMON NORMALS: patient oriented x3 Psych: COMMON NORMALS: mental status grossly normal Discharge Data Studies Completed and Pending Completed Studies During Hospitalization Category Date Time Status CT chest w con* [id number] Routine Cat Scan 09/04/22 08:13 Completed XR chest 1V portable [id number] Stat Exams 09/03/22 17:52 Completed CV. echo complete* [id number] Routine Ultrasound 09/04/22 06:00 Completed Pending at discharge Category Date Time Status Blood Culture Stat Lab 09/03/22 19:42 Results Respiratory Panel 2 Routine Lab 09/04/22 01:48 Ordered Urine Culture Stat Lab 09/03/22 20:26 Results Radiology Impressions Chest X-Ray 09/03/22 17:52 IMPRESSION: Left lower lobe atelectasis. Chest CT 09/04/22 08:13 IMPRESSION: 1. Areas of pleuroparenchymal scarring throughout both lungs. 2. Postsurgical change and or combination left breast mass with adjacent surgical clips. 3. Minor areas of linear stranding left axilla. 4. Small nonspecific mediastinal lymph nodes. Borderline accentuated size and could be reactive or neoplastic. Correlate to further surveillance imaging or PET imaging if available. 5. Numerous tiny cyst throughout both kidneys with greatest involvement on the left. 6. Numerous hypodense lesions within the liver a few of which are consistent with hepatic cyst. A few are too small for definitive characterization. 7. Splenomegaly. 8. Areas of pleuroparenchymal scarring throughout both lungs. There is no focal consolidation. COMMENTS: Consistent with the [employer]'s Incidental Findings Committee white paper (J Am Anjali Radiol 2018): Any incidental renal lesion less than 1 cm or classified as too small to characterize, or any incidental cystic renal lesion characterized as simple-appearing, is likely benign. No follow-up imaging is recommended for these lesions per consensus recommendations based on imaging criteria. Laboratory Results WBC 5.0 10^3/uL (4.0-10.0) 09/06/22 03:27 RBC 4.03 10^6/uL (4.1-5.3) L 09/06/22 03:27 Hgb 11.1 g/dL (11.5-15.3) L 09/06/22 03:27 Hct 36.0 % (37.0-47.0) L 09/06/22 03:27 MCV 89.3 fl (81-99) 09/06/22 03:27 MCH 27.5 pg (28.0-34.0) L 09/06/22 03:27 MCHC 30.8 g/dL (30.0-36.0) 09/06/22 03:27 RDW 15.9 % (12.1-15.1) H 09/06/22 03:27 Plt Count 221 10^3/cmm (130-400) 09/06/22 03:27 MPV 9.8 fL (7.4-10.4) 09/06/22 03:27 Neut % (Auto) 47.2 % 09/06/22 03:27 Lymph % (Auto) 41.4 % 09/06/22 03:27 [place] % (Auto) 7.8 % 09/06/22 03:27 Eos % (Auto) 3.0 % 09/06/22 03:27 Baso % (Auto) 0.2 % 09/06/22 03:27 Neut # (Auto) 2.35 10^3/uL (1.8-7.7) 09/06/22 03:27 Lymph # (Auto) 2.1 10^3/uL (0.8-4.8) 09/06/22 03:27 [place] # (Auto) 0.4 10^3/uL (0.2-0.9) 09/06/22 03:27 Eos # (Auto) 0.2 10^3/uL (0.0-0.8) 09/06/22 03:27 Baso # (Auto) 0.0 10^3/uL (0.0-0.1) 09/06/22 03:27 Nucleated RBC % (auto) 0 % 09/06/22 03:27 Nucleated RBCs # 0.0 /100WBC 09/06/22 03:27 Sodium 136 mmol/L (136-145) 09/06/22 03:21 Potassium 3.5 mmol/L (3.5-5.1) 09/06/22 03:21 Chloride 101 mmol/L (98-107) 09/06/22 03:21 Carbon Dioxide 25 mmol/L (22-29) 09/06/22 03:21 Anion Gap 13.5 (5-19) 09/06/22 03:21 BUN 10 mg/dL (8-23) 09/06/22 03:21 Creatinine 0.8 mg/dL (0.5-0.9) 09/06/22 03:21 GFR Calculation Not Reportable 09/06/22 03:21 Glucose 116 mg/dL (65-115) H 09/06/22 03:21 Calculated Osmolality 294 mOsm/kg (285-295) 09/04/22 03:22 Lactic Acid 2.1 mmol/L (0.5-2.2) 09/03/22 18:46 Lactic Acid (Sepsis) 0.7 mmol/L (0.5-2.2) 09/03/22 21:20 Calcium 8.6 mg/dL (8.5-10.5) 09/06/22 03:21 Phosphorus 2.9 mg/dL (2.5-4.5) 09/06/22 03:21 Magnesium 1.9 mg/dL (1.7-2.3) 09/06/22 03:21 Total Bilirubin 0.2 mg/dL (0.15-1.2) 09/04/22 03:22 AST 20 U/L (0-32) 09/04/22 03:22 ALT 14 U/L (0-33) 09/04/22 03:22 Alkaline Phosphatase 68 U/L (35-105) 09/04/22 03:22 NT-Pro-B Natriuret Pep 136 pg/mL (0-450) 09/03/22 18:46 Total Protein 6.7 g/dL (6.6-8.7) 09/04/22 03:22 Albumin 3.2 g/dL (3.5-5.2) L 09/06/22 03:21 Globulin 3.0 g/dL (1.3-4.6) 09/04/22 03:22 Procalcitonin 0.12 ng/mL (0-0.5) 09/03/22 18:46 TSH 0.75 uIU/mL (0.27-4.20) 09/03/22 18:46 Urine Color Yellow (Yellow) 09/03/22 20:26 Urine Appearance Clear (CLEAR) 09/03/22 20:26 Urine pH 5 (5-7) 09/03/22 20: Ur Specific [place] 1.015 (1.005-1.030) 09/03/22 20: Urine Protein Trace (Negative) 09/03/22 20: Urine Glucose (UA) Norm (Normal) 09/03/22 20:26 Urine Ketones Negative (Negative) 09/03/22 20:26 Urine Blood 3+ (Negative) H 09/03/22 20: Urine Nitrate Negative (Negative) 09/03/22 20:26 Urine Bilirubin Neg (Negative) 09/03/22 20:26 Urine Urobilinogen Neg mg/dL (Negative) 09/03/22 20:26 Ur Leukocyte Esterase Negative (Negative) 09/03/22 20:26 Urine RBC 5-10 /hpf (0-2) H 09/03/22 20:26 Urine WBC 15-25 /hpf (0-5) H 09/03/22 20:26 Ur Squamous Epith Cells 0-4 /hpf (0-5) H 09/03/22 20:26 Amorphous Sediment Not Reportable 09/03/22 20:26 Urine Bacteria 1+ /hpf (NONE) H 09/03/22 20:26 Nasal Influ A H1 2009 PCR Detected (NOT DETECT) A 09/04/22 05:38 Coronavirus 229E (PCR) Not detected (NOT DETECT) 09/04/22 02:50 Influenza A (H1) PCR Not detected (NOT DETECT) 09/04/22 05:38 Influenza A (H3) PCR Not detected (NOT DETECT) 09/04/22 05:38 Influenza Type A Ag negative (Negative) 09/03/22 19:23 Influenza Type A (PCR) Detected (NOT DETECT) A 09/04/22 05:38 Influenza Type B Ag negative (Negative) 09/03/22 19:23 Influenza Type B (PCR) Not detected (NOT DETECT) 09/04/22 05:38 SARS-CoV-2 (PCR) Not detected (NOT DETECT) 09/04/22 02:50 SARS-CoV-2 Ag (Rapid) negative (Negative) 09/03/22 19:23 Vitals Last Vital Signs Temp 98.0 F 09/07/22 10:50 Pulse 74 09/07/22 10:50 Resp 18 09/07/22 10:50 BP 95/55 09/07/22 10:50 Pulse Ox 93 09/07/22 10:50 O2 Del Method 09/07/22 09:40 O2 Flow Rate 2 09/05/22 09:17 Discharge Plan Discharge Patient Disposition: Home Condition: Stable Prescriptions: New benzonatate 100 mg Capsule 100 mg PO TID PRN (Reason: Cough) 7 Days Qty: 21 0RF oseltamivir 75 mg Capsule 75 mg PO BID 3 Days Qty: 6 0RF levofloxacin 750 mg tablet 750 mg PO DAILY 5 Days Qty: 5 0RF Continued promethazine-DM 6.25-15 mg/5 mL syrup 5 ml PO Q6H PRN (Reason: Cough) sertraline 100 mg tablet 150 mg PO DAILY cyanocobalamin (vitamin B-12) 1,000 mcg/mL solution 1,000 mcg IM Q30D ibuprofen 600 mg tablet 600 mg PO TID PRN (Reason: Pain) rosuvastatin 5 mg tablet 5 mg PO DAILY Dupixent Pen 200 mg/1.14 mL Pen Injector 200 mg SUBCUT Q14D Changed albuterol sulfate 90 mcg/actuation HFA aerosol inhaler 1 puff INHALATION Q6H PRN (Reason: Shortness Of Breath) Qty: 8.5 0RF Discontinued prednisone 20 mg tablet 40 mg PO DAILY Discharge Orders: Discharge Order (Routine); Ordered 09/07/22 Ordered By: Krzysztof Valdes Discharge Diet: Regular Discharge Activity: Resume usual activity Patient Instructions: Benzonatate (By mouth) (Tessaltavon Marx Zonatuss), Levofloxacin (By mouth) (Levaquin, Levaquin Leva-tito), Oseltamivir (By mouth) (Tamiflu), Influenza (GEN), Opioid Safety Activity Restrictions/Additional Instructions: -please see primary care in 1 week APPOINTMENT WITH YOUR PCP [phone] ON TuesdaySEPTEMBER 14 AT 9:50 -hydrate well -please wear face mask, handwash, monitor for fever -see primary care in one week -see oncology in one week Discharge Attestations Time Spent in Discharge Care*: less than 30 min Quality Metrics Clinical Quality Measures [ No reported AMI, CVA or VTE this stay] Coding Level of Care Code Acute Chg FW DC note Exam Detailed Diagnoses Pneumonia J18.9 Influenza A J10.1 Breast cancer C50.919 Diarrhea R19.7 Debility R53.81
== END 2022-09-07 11:20 | disposition home or self-care (01) | DRG 194 ==
LOC: ER 23:01 → MEDSURG 23:12
PROVIDERS: Emergency Medicine; Internal Medicine; Admitting Provider Internal Medicine; Emergency Provider Family Medicine; Visit Provider Family Medicine
DX: J10.00 Influenza due to other identified influenza virus with unspecified type of pneumonia (principal); D84.821 Immunodeficiency due to drugs; E78.5 Hyperlipidemia, unspecified; F32.A Depression, unspecified; F41.9 Anxiety disorder, unspecified; C50.919 Malignant neoplasm of unspecified site of unspecified female breast; Z79.899 Other long term (current) drug therapy; Z86.16 Personal history of COVID-19; T45.1X5A Adverse effect of antineoplastic and immunosuppressive drugs, initial encounter; Z99.81 Dependence on supplemental oxygen; E86.0 Dehydration; R19.7 Diarrhea, unspecified
CPT/HCPCS: 36415; 36591; 71045; 71260; 80053; 80069; 81001; 83605; 83735; 83880; 84145; 84443; 85025; 87040; 87077; 87086; 87186; 87426; 87631; 87635; 87804; 93005; 93306; 94664; 96365; 96367; 96372; 97116; 97161; 97530; 99285; G0378; J0456; J0696; J1650; J2405; J7050; Q9967